=== PATIENT | female | born 1935 | race Caucasian/White ===

== ENCOUNTER 2018-10-08 10:09 | Inpatient (IN) ==
--- NOTE | 2018-10-08 10:49 | Diag Imaging Result Doc PS360 ---
EXAM: CT HEAD W/O CONTRAST INDICATION: stroke like symptoms TECHNIQUE: This exam was performed using automated exposure control, adjustment of mA or kV according to patient size, and/or use of iterative reconstruction technique. COMPARISON: None. FINDINGS: There is moderate diffuse brain atrophy. There is patchy low attenuation in the periventricular and subcortical white matter suggesting moderate to advanced microangiopathy. There is a prominent Virchow-Óscar space at the inferior aspect of the basal ganglion on the left. There is no definite acute infarct given the limited sensitivity of CT versus MRI. There is no discrete intracranial mass, mass effect, or intracranial hemorrhage. There is a small left maxillary sinus mucus retention cyst. Surrounding soft tissues and bony structures are essentially unremarkable, otherwise. IMPRESSION: Atrophy and chronic appearing white matter changes as described. No definite acute pathology by CT. Electronically signed by Rad Hutton 10/08/2018 10:47 AM
[2018-10-08] MEDS ORDERED: NS 1,000 ML IV ONE ×2 (11:24→13:13)
[2018-10-08] MEDS ORDERED: ASPIRIN PR ONE (11:25)
--- NOTE | 2018-10-08 11:53 | EKG Report ---
Test Performed on : 10/08/2018 10:32:12 AM Test Reason : STROKE Blood Pressure : / mmHG Vent. Rate : 095 BPM Atrial Rate : 095 BPM P-R Int : 168 ms QRS Dur : 086 ms QT Int : 372 ms P-R-T Axes : 061 006 057 degrees QTc Int : 467 ms Sinus rhythm. with premature atrial complexes. Cannot rule out Anterior infarct , age undetermined Abnormal ECG When compared with ECG of 15-FEB-2010 11:26, premature ventricular complexes. are no longer present premature atrial complexes. are now present Nonspecific T wave abnormality no longer evident in Inferior leads T wave inversion no longer evident in Anterior leads QT has shortened Unconfirmed Result
[2018-10-08 11:56] LABS: BASO# 0.06 X1000 (0.0-0.2); BASO% 0.4 % (0.0-0.8); HEMATOCRIT 44.8 % (37.0-47.0); LYMPH% 8.1 % (20.5-51.1); MCV 95.5 FL (81-99); MPV 11.8 FL (7.4-10.4); RBC 4.69 XMIL (4.2-5.4)
[2018-10-08] MEDS ORDERED: ZOFRAN IV ONE (11:58)
--- NOTE | 2018-10-08 11:59 | Diag Imaging Result Doc PS360 ---
EXAM: CHEST-PORTABLE HISTORY: STROKE TECHNIQUE: Chest single view COMPARISON: 07/03/2018 FINDINGS: Poor inspiratory effort. Heart is mildly prominent. There are no infiltrates. No pleural effusions identified. There is a granuloma in the left base. IMPRESSION: Mildly prominent heart. Electronically signed by Jair Painter 10/08/2018 11:57 AM
[2018-10-08] MEDS ORDERED: ZOFRAN ONE (12:00)
[2018-10-08 12:04] LABS: AGAP 13; ALB/GLOB RATIO 1.2; ALBUMIN 4.2 g/dL (3.5-5.0); ALKALINE PHOSPHATASE 187 U/L (32-104); BUN 11 mg/dL (8-22); CHLORIDE 103 mmol/L (98-107); COSMO 280; CREATININE 0.7 mg/dL (0.5-0.9); ESTIMATED GFR > 60; GLUCOSE 146 mg/dL (70-104); GOT 16 U/L (10-30); GPT 12 U/L (10-36); POTASSIUM 4.6 mmol/L (3.5-5.1); SODIUM 139 mmol/L (136-145); TCO2 23 mmol/L (25-35); TOTAL BILIRUBIN 0.25 mg/dL (0.20-1.00); TOTAL PROTEIN 7.7 g/dL (6.3-8.3)
[2018-10-08] MEDS ORDERED: ROCEPHIN 1 GM in NS 50 ML IV ONE (12:10)
[2018-10-08 12:20] LABS: URINE SOURCE CATH
[2018-10-08 12:23] LABS: BILIRUBIN URINE NEGATIVE (NEGATIVE); BLOOD URINE NEGATIVE (NEGATIVE); COLOR YELLOW; GLUCOSE URINE NEGATIVE (NEGATIVE); KETONE URINE TRACE mg/dL (NEGATIVE); LEUKOCYTES URINE MODERATE (NEGATIVE); NITRITE URINE NEGATIVE (NEGATIVE); PH URINE 7.5; PROTEIN URINE 30 mg/dL (NEGATIVE); SP GRAVITY URINE 1.017; TURBIDITY URINE CLEAR (CLEAR); UROBILINOGEN URINE NORMAL (NORMAL)
[2018-10-08 12:24] LABS: UR EPITHELIAL CELLS <10 /HPF (<10); URINE BACTERIA NEGATIVE /HPF; URINE RBC <10 /HPF (<10); URINE WBC <10 /HPF (<10)
[2018-10-08 12:37] LABS: EOS# 0.07 X1000 (0.0-0.7); EOS% 0.5 % (0.0-10.0); HEMOGLOBIN 14.8 g/dL (12.0-16.0); IMM GRAN# 0.04 X1000 (0.0-0.04); IMM GRAN% 0.3 % (0.0-0.5); MCH 31.6 PG (27-31); MONO# 0.55 X1000 (0.11-0.59); MONO% 4.1 % (1.7-9.3); NEUT# 11.69 X1000 (1.4-6.5); NEUT% 86.6 % (42.2-75.2); PLT 213 X1000 (130-400); RDW 12.6 % (11.5-14.5); WBC 13.51 X1000 (4.8-10.8)
[2018-10-08 12:42] LABS: UR AMPHETAMINES QUAL NONE DETECTED (NONE DETECT); UR BARBITUATES QUAL NONE DETECTED (NONE DETECT); UR BENZODIAZEPIN QUAL NONE DETECTED (NONE DETECT); UR CANNABINOIDS QUAL NONE DETECTED (NONE DETECT); UR COCAINE QUAL NONE DETECTED (NONE DETECT); UR METHADONE QUAL NONE DETECTED (NONE DETECT); UR OPIATES QUAL NONE DETECTED (NONE DETECT); UR OXYCODONE QUAL NONE DETECTED (NONE DETECT); UR PCP QUAL NONE DETECTED (NONE DETECT)
--- NOTE | 2018-10-08 14:05 | PROVIDER DOCUMENTATION ---
This chart was entered by Celsa Meek Scribe, acting as scribe for Nawaf Raymundo MD. HPI-Neurological Disorder - General Chief Complaint: Altered Mental Status Stated Complaint: stroke like symptoms Time Seen by Provider: 10/08/18 10:23 Source: patient, family, EMS Allergies/Adverse Reactions: Patient Allergies Allergy/AdvReac Type Severity Reaction Status Date / Time Penicillins Allergy RASH Verified 10/08/18 10:45 Home Medications: Home Medication List Medication Instructions Recorded Confirmed Last Taken Type Aspirin 325 mg 06/10/16 06/10/16 History Diltiazem HCl [Diltiazem 24Hr ER] 1 dose 06/10/16 06/10/16 History Lisinopril 10 mg 06/10/16 06/10/16 History Meloxicam 1 dose 06/10/16 06/10/16 History - History of Present Illness-Neuro Nature of Presenting Problem: 83 yowf presents to the ed via ems with her family at bedside. pt was at baseline of a/o x4 last night when family spoke with her 2100. pt called her daughter this morning at 0901 and was having difficulty with using correct words and ask her to come over. daughter once at the home could see no weakness but noticed word salad when speaking with the pt. pt is tearful on exam and still having trouble with speech. no slurring of words are noted but pt can follow some basic commands but then gets confused with other commands. pt c/o left temporal LORENZO Headache Location: reports: temporal (left) Severity: reports: moderate Onset/Duration: reports: this morning (0900) Timing: reports: still present, constant Context: reports: impaired speech. denies: fever, paresthesia, facial droop Character of Altered Mental Status: reports: confused, trouble concentrating Any recent trauma/injury?: reports: none Character of Deficits: reports: impaired speech. denies: altered sensation, impaired swallowing New weakness or altered sensation location:: reports: none Cognitive Baseline: alert, oriented x3 Gait Baseline: walks without assistance Associated Symptoms: reports: headache (left). denies: dizziness, chest pain, nausea, slurred speech (aphasia), vomiting, vision changes, weakness Similar Symptoms Previously?: No Recently seen or treated by another doctor?: No Review of Systems - Adult - REVIEW OF SYSTEMS - ADULT ROS:: ROS per family (daughter) Constitutional: denies: chills, fever Eyes: reports: no symptoms reported Ears, Nose, Mouth & Throat: reports: no symptoms reported Cardiovascular: denies: chest pain, palpitations Respiratory: reports: no symptoms reported Gastrointestinal: denies: abdominal pain, diarrhea, difficulty swallowing, nausea, vomiting Genitourinary: reports: no symptoms reported Musculoskeletal: denies: back pain, neck pain Integumentary: reports: no symptoms reported Neurological: reports: see HPI, headache/migraines. denies: dizziness/vertigo, seizure, slurred speech (aphasia), syncope, tremors Psychiatric: reports: no symptoms reported Endocrine: reports: no symptoms reported Hematologic/Lymphatic: reports: no symptoms reported Allergic/Immunologic: reports: no symptoms reported All Other Systems: Reviewed and Negative Past History - Adult - PAST MEDICAL HISTORY-ADULT Review of Records: reports: Nursing Assessment Review, Medications Reviewed Major Childhood Illnesses: reports: denies history Cardiovascular: reports: HTN Respiratory: reports: COPD Gastrointestinal: reports: denies history Obstetrical/Gynecological: reports: denies history Genitourinary: reports: other (renal cyst) Musculoskeletal: reports: denies history Neurological: reports: denies history Endocrine/Immune: reports: denies history 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, other (MAC) - PRIOR SURGERIES/PROCEDURES Surgical/Procedure History: reports: cholecystectomy - IMMUNIZATION STATUS Childhood Immunizations: See Nurse Assessment Flu Vaccine: See Nurse Assessment - FAMILY HISTORY Family History: reviewed, not pertinent - SOCIAL HISTORY Smoking: denies Substance Use: denies Living Situation: family Physical Exam- Neurological - Physical Exam-Neuro Initial Vital Signs Reviewed: Yes General Appearance: appears well, alert, obese Eye Exam: bilateral eye: normal inspection, PERRL, EOMI HENMT: moist mucous membranes Head Injury: no evidence of injury Neck: non-tender, full range of motion, supple, normal inspection Respiratory: chest non-tender, increased rate (25) Cardiovascular: normal peripheral pulses Abdominal Exam: normal bowel sounds, non tender, soft Lymphatic: no adenopathy Extremity: normal range of motion, non-tender, normal inspection, no pedal edema , no calf tenderness, normal capillary refill head of sales Exam: PERRL, abnormal speech. negative: facial droop, facial paresthesias, facial weakness, gaze palsy Motor/Sensory: no motor deficit, no sensory deficit, no pronator drift Neurologic: aphasia. negative: motor weakness Integumentary: normal color, normal turgor, warm/dry Psych/Mental Status: disoriented x 3, tearful - Glascow Coma Scale Best Eye Response: (4) open spontaneously Best Verbal Response: (4) confused conversation Best Motor Response: (6) obeys commands (some but easily confused) Total Glascow Score: 14 Progress - PLAN OF CARE/RESULTS Progress/Plan/Lab Results: Vital Signs - 8 hr 10/08/18 10:31 10/08/18 10:36 10/08/18 10:40 Temperature Pulse Rate 94 H 93 H Respiratory Rate 22 24 28 H Blood Pressure 186/99 186/99 O2 Sat by Pulse Oximetry 94 L 98 96 10/08/18 10:50 10/08/18 11:00 10/08/18 11:10 Temperature Pulse Rate 90 90 91 H Respiratory Rate 22 21 23 Blood Pressure O2 Sat by Pulse Oximetry 96 96 94 L 10/08/18 11:20 10/08/18 11:30 10/08/18 11:40 Temperature Pulse Rate 90 90 85 Respiratory Rate 26 H 23 18 Blood Pressure O2 Sat by Pulse Oximetry 96 96 98 10/08/18 11:50 10/08/18 12:00 10/08/18 12:08 Temperature 98.4 F Pulse Rate 87 114 H Respiratory Rate 20 26 H Blood Pressure O2 Sat by Pulse Oximetry 97 96 Laboratory Results - last 24 hr 10/08/18 10/08/18 10/08/18 10:35 10:46 11:33 WBC 13.51 H RBC 4.69 Hgb 14.8 Hct 44.8 MCV 95.5 MCH 31.6 H MCHC 33.0 RDW Std Deviation 12.6 Plt Count 213 MPV 11.8 H Immature Gran % (Auto) 0.3 Neut % (Auto) 86.6 H Lymph % (Auto) 8.1 L Daniels % (Auto) 4.1 Eos % (Auto) 0.5 Baso % (Auto) 0.4 Immature Gran # (Auto) 0.04 Neut # (Auto) 11.69 H Lymph # (Auto) 1.10 L Daniels # (Auto) 0.55 Eos # (Auto) 0.07 Baso # (Auto) 0.06 Sodium 139 Potassium 4.6 Chloride 103 Carbon Dioxide 23 L Anion Gap 13 BUN 11 Creatinine 0.7 Estimated GFR/1.73 m2 > 60 BUN/Creatinine Ratio 16 Glucose 146 H POC Glucose 145 H Calculated Osmolality 280 Calcium 10.0 Magnesium 2.0 Total Bilirubin 0.25 AST 16 ALT 12 Alkaline Phosphatase 187 H Total Protein 7.7 Albumin 4.2 Globulin 3.5 Albumin/Globulin Ratio 1.2 Plasma Lactate Urine Source Urine Color Urine Turbidity Urine pH Ur Specific Hixson Urine Protein Ur Glucose (Stick) Ur Ketones (Stick) Urine Blood Urine Nitrite Urine Bilirubin Urobilinogen Dipstick Urine Leukocytes Urine WBC (Auto) Urine RBC (Auto) U Epithel Cells (Auto) Urine Bacteria (Auto) Urine Opiates Screen Ur Oxycodone Screen Ur Methadone, Qual Ur Barbiturates Screen Ur Phencyclidine Scrn Ur Amphetamines Screen U Benzodiazepines Scrn Urine Cocaine Screen U Cannabinoids Screen 10/08/18 10/08/18 10/08/18 12:05 12:05 12:10 WBC RBC Hgb Hct MCV MCH MCHC RDW Std Deviation Plt Count MPV Immature Gran % (Auto) Neut % (Auto) Lymph % (Auto) Daniels % (Auto) Eos % (Auto) Baso % (Auto) Immature Gran # (Auto) Neut # (Auto) Lymph # (Auto) Daniels # (Auto) Eos # (Auto) Baso # (Auto) Sodium Potassium Chloride Carbon Dioxide Anion Gap BUN Creatinine Estimated GFR/1.73 m2 BUN/Creatinine Ratio Glucose POC Glucose Calculated Osmolality Calcium Magnesium Total Bilirubin AST ALT Alkaline Phosphatase Total Protein Albumin Globulin Albumin/Globulin Ratio Plasma Lactate 2.1 Urine Source CATH Urine Color YELLOW Urine Turbidity CLEAR Urine pH 7.5 Ur Specific Hixson 1.017 Urine Protein 30 A Ur Glucose (Stick) NEGATIVE Ur Ketones (Stick) TRACE A Urine Blood NEGATIVE Urine Nitrite NEGATIVE Urine Bilirubin NEGATIVE Urobilinogen Dipstick NORMAL Urine Leukocytes MODERATE A Urine WBC (Auto) <10 Urine RBC (Auto) <10 U Epithel Cells (Auto) <10 Urine Bacteria (Auto) NEGATIVE Urine Opiates Screen NONE DETECTED Ur Oxycodone Screen NONE DETECTED Ur Methadone, Qual NONE DETECTED Ur Barbiturates Screen NONE DETECTED Ur Phencyclidine Scrn NONE DETECTED Ur Amphetamines Screen NONE DETECTED U Benzodiazepines Scrn NONE DETECTED Urine Cocaine Screen NONE DETECTED U Cannabinoids Screen NONE DETECTED Orders Category Date Time Status Cardiac Monitoring DIRECTED Care 10/08/18 11:21 Active Saline Loc NOW Care 10/08/18 11:22 Active CHEST-PORTABLE [RAD] Stat Exams 10/08/18 11:[address] HEAD W/O CONTRAST [CT] Stat Exams 10/08/18 10:04 Completed MRA BRAIN W/O CONTRAST [MRI] Stat Exams 10/08/18 13:42 Ordered MRI BRAIN W/WO CONTRAST [MRI] Stat Exams 10/08/18 13:42 Ordered BLOOD CULTURE [BLDCUL] Stat Lab 10/08/18 12:22 Results CBC WITH ELECTRONIC DIFF [HEME] Stat Lab 10/08/18 10:46 Completed COMPREHENSIVE METABOLIC PANEL [CHEM] Stat Lab 10/08/18 11:33 Completed LACTATE, PLASMA [CHEM] Stat Lab 10/08/18 12:10 Completed MAGNESIUM [CHEM] Stat Lab 10/08/18 11:33 Completed URINALYSIS W/POSS RFLX CULT [URINALYSIS] Stat Lab 10/08/18 12:05 Completed URINE CULTURE [RM] Routine Lab 10/08/18 12:42 Received URINE DRUG SCREEN Stat Lab 10/08/18 12:05 Completed 0.9% Sodium Chloride Inj [Ns] 1,000 ml Med 10/08/18 13:13 Active IV 125 mls/hr 0.9% Sodium Chloride Inj [Ns] 1,000 ml Med 10/08/18 11:24 Discontinued IV 999 mls/hr Aspirin Med 10/08/18 11:25 Discontinued 300 mg MO NOW ONE CefTRIAXONE [Rocephin] 1 gm Med 10/08/18 12:10 Discontinued 0.9% Sodium Chloride Inj [Ns] 50 ml IV NOW Ondansetron [Zofran] Med 10/08/18 12:00 Discontinued 4 mg .ROUTE .STK-MED ONE Ondansetron [Zofran] Med 10/08/18 11:58 Discontinued 4 mg IV NOW ONE EKG [EKG] Stat Ther 10/08/18 11:23 Draft NO TPA given due to outside time window per dr raymundo Result Diagrams: 10/08/18 10:46 10/08/18 11:33 - REASSESSMENT Reassessment #1 Time Reassessed: 11:18 (pt still has expressive aphasia on exam but shows no signs of weakness ) Status: unchanged Reassessment #2 Time Reassessed: 12:21 (family with pt and pt is resting in bed) Status: unchanged Reassessment #3 Time Reassessed: 13:42 (family is at bedside and pt is having trouble with speaking still) Status: unchanged - EKG 1 Time of EKG reading by physician:: 10:32 (032) EKG Read and Signed by:: Nawaf Raymundo EKG Interpretation (*Must complete 3 of following elements*): Abnormal Rate: 95 Rhythm: sinus rhythm with pac Vista: normal QRS: normal MO Interval: normal ST Wave: normal Comments: cannot rule out anterior infarct, age undetermned - XRAY 1 XRAY: Bilateral XRAY Study: Chest Impression: See EMR Report (EXAM: CHEST-PORTABLE HISTORY: STROKE TECHNIQUE: Chest single view COMPARISON: 07/03/2018 FINDINGS: Poor inspiratory effort. Heart is mildly prominent. There are no infiltrates. No pleural effusions identified. There is a granuloma in the left base. IMPRESSION: Mildly prominent heart. Electronically signed by Jair Painter 10/08/2018 11:57 AM 10/08/18 1157 Interpreting Physician: Jair Painter MD Dictated Date/ Time: 10/08/18 1156 cc: Nawaf Raymundo MD; Cally Raymundo MD) - CT/MRI 1 CT Study: Head Impression: See EMR Report (EXAM: CT HEAD W/O CONTRAST INDICATION: stroke like symptoms TECHNIQUE: This exam was performed using automated exposure control, adjustment of mA or kV according to patient size, and/or use of iterative reconstruction technique. COMPARISON: None. FINDINGS: There is moderate diffuse brain atrophy. There is patchy low attenuation in the periventricular and subcortical white matter suggesting moderate to advanced microangiopathy. There is a prominent Virchow-Óscar space at the inferior aspect of the basal ganglion on the left. There is no definite acute infarct given the limited se nsitivity of CT versus MRI. There is no discrete intracranial mass, mass effect, or intracranial hemorrhage. There is a small left maxillary sinus mucus retention cyst. Surrounding soft tissues and bony structures are essentially unremarkable, otherwise. IMPRESSION: Atrophy and chronic appearing white matter changes as described. No definite acute pathology by CT. Electronically signed by Rad Hutton 10/08/2018 10:47 AM 10/08/18 1047 Interpreting Physician: Rad Hutton MD Dictated Date/Time: 10/08/18 1043 cc: Nawaf Raymundo MD; Cally Raymundo MD) - CONSULTS/PCP/HOSPITALIST Notification #1 *Consult/PCP/Hospitalist*: hospitalist dr flor Time Discussed: 13:42 Consult Disposition: Admit Departure - Departure Date of Disposition Decision: 10/08/18 Time of Disposition Decision: 14:02 DIAGNOSIS: Aphasia, Broca's, Ischemic cerebrovascular accident (CVA) Disposition: ADMITTED INPATIENT 09 Certified Medical Emergency: Emergent Condition: Stable Referrals and Follow-Ups: Cally Raymundo MD [Primary Care Provider] - - Critical Care Note This patient required my direct & personal management of CC.: Yes Total Time (mins): 35 Critical Care Statement: This patient required my direct personal management to treat or rule out processes, the absence of which, could potentiallly result in sudden, clinically significant life or limb threatening deterioration. Attestation - Physician/ GRISELDA Attestation Patient care was provided by Advanced Practice Provider:: No The physician spent face to face time with patient:: Yes Advanced Practice Provider documentation review:: Supervising physician onsite and consulted in the evaluation and care of this patient. The physician did have a face to face encounter with the patient. - NIH Stroke Scale NIH Type: Initial Evaluation Level of Consciousness: 0-Alert LOC Questions (ask month and age): 0-Answers Both Correctly LOC Commands (ask to open & close eyes;make a fist, let go): 1-Obeys One Correctly Best Gaze (horizontal eye movement): 0-Normal Visual (use finger movement, counting or visual threat): 0-No Visual Loss Facial Palsy (show teeth or raise eyebrows & close eyes tght: 0-Symmetrical Movement Motor Function-left arm: 0-Normal Motor Function-right arm: 0-Normal Motor Function-left le-Normal Motor Function-right le-Normal Limb Ataxia([id number]-[id number], or heel to toro): 0-No Ataxia Sensory(pin prick to face,arms,trunk,legs-compare side/side): 0-No Ataxia Best Language(name item/read sentence.Ex-Down to Earth): 2-Severe Aphasia Dysarthria(Pt read words or say words Ex.Mama,Tip-Top,Thanks: 0-Normal Articulation Extinction and Inattention: 1-Partial Neglect NIH Total Score: 4 This chart was documented by the indicated scribe, (Celsa Meek, Abimael) and accurately reflects the services I performed and decisions made by me, Nawaf Raymundo MD, as attested by the provider's signature.
[2018-10-08] MEDS ORDERED: TYLENOL PO PRN (14:57)
[2018-10-08] MEDS ORDERED: ZOFRAN IV PRN (14:57)
[2018-10-08] MEDS ORDERED: SYMBICORT 160/4.5 MICROGM INHALER INH PRN (15:49)
--- NOTE | 2018-10-08 16:47 | HISTORY AND PHYSICAL ---
HISTORY OF PRESENT ILLNESS: Ms. Bedoya is 83-year-old. I think she sees Dr. Cally Colin, primary care and apparently this morning she called her daughter and said she needed to come over and help her and she came over and she was having trouble putting words together. She did not appear in any respiratory distress. She denied any chest pain or fever. No recent head trauma. Past medical history fairly unremarkable except for hypertension. She also has been diagnosed with MAC and I am not sure if she is followed by insurance appraiser. She seems to be speaking a little better and structuring her sentences better now and so there is improvement. CT of the head done without contrast showed atrophy, chronic appearing white matter changes. No definite acute pathology, though. PAST MEDICAL HISTORY: Hypertension MEDICATIONS: She has been taking aspirin every day. ALLERGIES: No known drug allergies. SOCIAL HISTORY: Lives in [place]. I think Dr. Cally Colin is her primary care physician. REVIEW OF SYSTEMS: The family is at the bedside. No weight gain or loss. No fever or chills. No change in hearing or visual acuity. No neck pain. No recent head trauma.Respiratory: No increased work of breathing or dyspnea. No cough or pleuritic discomfort. Cardiovascular: No chest pain or tachy palpitations. GI/: No gross hematochezia, no gross hematuria. No dysuria. Neurologic: No focal complaints or changes. Endocrinologic/Hematologic: No significant history. PHYSICAL EXAMINATION: VITAL SIGNS: In the emergency room she is awake and alert. She answers questions and seems to formers sentences pretty good. She could no if's ands or buts but she did not try really there, but the family said she is putting phrases together and she is speaking much more fluently right now, she is afebrile 98.4 degrees, pulse 96, respirations 20, blood pressure 154/60. Weight is 190 pounds HEENT: Pupils are equal round. Oral and nasal mucosa unremarkable. Conjunctivae pink. Sclerae clear. LUNGS: Clear in all lung steinberg. CARDIOVASCULAR: Regular rhythm and rate without murmur or S3. ABDOMEN: Soft. SKIN: Warm and dry. Weight is 190 pounds. NEUROLOGIC: Cranial nerves 2-12 appear intact. Motor strength is symmetrical and appears to be 4+ out of 5 and no sensory deficit detected. No facial drooping. Tongue is midline skin is warm and dry. No rash. LAB: White count 31,510, hematocrit is 44, platelet count 213,000. Sodium 139, potassium 4.6, chloride 103, BUN 11, creatinine 0.7, blood sugar 146, calcium is 10. AST 16, ALT 12, alkaline phosphatase 187, albumin is 4.2. Urine drug screen was negative for opiates, oxycodone, methadone, barbiturates, phencyclidine, amphetamines, benzodiazepines, cocaine, and cannabinoids. Urinalysis was unremarkable. No significant sediment. Chest x-ray was mildly prominent heart, but otherwise no infiltrate and no acute pathology. ASSESSMENT AND PLAN: 1. I suspect she has had a left parietal event and it looks like it may be transient affecting the speech center or the area of Broca. She is already on aspirin. We will add Plavix to her regimen. I am going to check a cholesterol profile in the morning. We will check her T4, TSH, B12, and folate. We will ask Neurology to evaluate as well. We will also get an echocardiogram and carotid Doppler to make sure there is no embolic source. We will put her on a monitor, make sure she is not having underlying paroxysmal atrial fibrillation and we will give her normal saline and run it at 75 mL an hour. Note that she has a history of hypertension. Her blood pressure looks good at this point. We are going to allow blood pressures 150s 160 systolic at this point, tolerance for a little bit of mild hypertension in the face of an acute transient ischemic attack. 2. Hypertension watch blood pressure. 3. She has a history of MAC. REVIEW OF MEDICATIONS: Her medications she is on rifampin 2 tablets daily will continue those. She is on lisinopril 10 mg a day. We will continue that as well, ethambutol 5 tablets. We will see how she takes those but continue those medicines. She is already on budesonide formoterol inhaler. We will continue that. She is on azithromycin, so I believe she is taking azithromycin and ethambutol and rifampin all for MAC. She takes aspirin 325 mg a day. We will change that to an 81 mg tablet a day and will start her on Plavix 75 mg a day. Put her on a heart healthy diet and get a swallow evaluation. We will start speech therapy and physical therapy in the morning. cc: Blaine Reyes MD
[2018-10-08] MEDS: PLAVIX PO SCH (17:26)
[2018-10-08] MEDS: NS 1,000 ML IV SCH (17:27)
[2018-10-08] MEDS: ZANTAC PO SCH (22:40)
[2018-10-08] MEDS: LIPITOR PO SCH (22:40)
[2018-10-09] MEDS: NS 1,000 ML IV SCH ×3 (04:56→20:16)
[2018-10-09 06:17] LABS: INR 1.03; PROTIME 14.3 Seconds (11.0-16.0)
[2018-10-09 06:18] LABS: PTT 29.2 Seconds (22.3-41.8)
[2018-10-09 06:34] LABS: AGAP 8; ALB/GLOB RATIO 1.4; ALBUMIN 3.7 g/dL (3.5-5.0); ALKALINE PHOSPHATASE 145 U/L (32-104); BUN 8 mg/dL (8-22); CALCIUM 9.3 mg/dL (8.8-10.2); CHLORIDE 107 mmol/L (98-107); COSMO 278; CREATININE 0.6 mg/dL (0.5-0.9); ESTIMATED GFR > 60; GLUCOSE 97 mg/dL (70-104); GOT 14 U/L (10-30); GPT 13 U/L (10-36); POTASSIUM 4.1 mmol/L (3.5-5.1); SODIUM 140 mmol/L (136-145); TCO2 25 mmol/L (25-35); TOTAL BILIRUBIN 0.28 mg/dL (0.20-1.00); TOTAL PROTEIN 6.4 g/dL (6.3-8.3)
[2018-10-09 07:21] LABS: FREE T4 0.92 ng/dL (0.93-1.70)
[2018-10-09 07:48] LABS: BASO# 0.05 X1000 (0.0-0.2); BASO% 0.6 % (0.0-0.8); EOS# 0.12 X1000 (0.0-0.7); EOS% 1.5 % (0.0-10.0); HEMATOCRIT 42.9 % (37.0-47.0); HEMOGLOBIN 13.8 g/dL (12.0-16.0); IMM GRAN# 0.02 X1000 (0.0-0.04); IMM GRAN% 0.3 % (0.0-0.5); LYMPH# 1.77 X1000 (1.2-3.4); LYMPH% 22.6 % (20.5-51.1); MCH 31.4 PG (27-31); MCHC 32.2 g/dL (33-37); MCV 97.5 FL (81-99); MONO# 0.57 X1000 (0.11-0.59); MONO% 7.3 % (1.7-9.3); MPV 11.3 FL (7.4-10.4); NEUT# 5.31 X1000 (1.4-6.5); NEUT% 67.7 % (42.2-75.2); PLT 192 X1000 (130-400); RDW 12.6 % (11.5-14.5); WBC 7.84 X1000 (4.8-10.8)
[2018-10-09] MEDS ORDERED: BROVANA NEB INH SCH ×2 (09:00→21:00)
[2018-10-09] MEDS: ZANTAC PO SCH ×2 (09:52→20:16)
[2018-10-09] MEDS: PREDNISONE PO SCH (09:52)
[2018-10-09] MEDS: ASPIRIN PO SCH (09:53)
[2018-10-09] MEDS: ZYRTEC PO SCH (09:55)
[2018-10-09] MEDS: ULTRAM PO SCH (09:57)
[2018-10-09] MEDS: PLAVIX PO SCH (09:59)
--- NOTE | 2018-10-09 10:44 | Diag Imaging Result Doc PS360 ---
EXAM: MRI BRAIN W/WO CONTRAST INDICATION: cva COMPARISON: No prior MRI brain is available for comparison. FINDINGS: There is no evidence of acute infarct. There is fairly advanced diffuse brain atrophy. There is patchy T2/FLAIR hyperintensity in the periventricular and subcortical white matter suggesting moderate microangiopathy. There is no discrete intracranial mass, mass effect, or intracranial hemorrhage. There is no evidence of abnormal intracranial enhancement. The surrounding soft tissues and bony structures are essentially unremarkable. IMPRESSION: Diffuse brain atrophy and suggestion of moderate white matter microangiopathy. No evidence of acute intracranial pathology. Electronically signed by Rad Hutton 10/09/2018 10:42 AM
--- NOTE | 2018-10-09 10:58 | Diag Imaging Result Doc PS360 ---
EXAM: MRA BRAIN W/O CONTRAST INDICATION: cva TECHNIQUE: 3-D [id number] images and 3-D MIPS were obtained. COMPARISON: None. FINDINGS: There is no evidence of flow-limiting stenosis, vascular malformation, or cerebral aneurysm involving the arteries comprising the [place] including the anterior, middle, and posterior cerebral arteries. The distal ICAs are patent and are unremarkable, otherwise. The basilar artery is unremarkable. The visualized distal vertebral arteries are unremarkable. IMPRESSION: No evidence of flow-limiting stenosis. Electronically signed by Rad Hutton 10/09/2018 10:56 AM
--- NOTE | 2018-10-09 11:35 | ECHO REPORT ---
ORDER DATE: 10/08/2018 INTERPRETING PHYSICIAN: Dr. Mendoza REQUESTING PHYSICIAN: Dr. Colin. CLINICAL INDICATIONS: 83-year-old female with a stroke. M-MODE MEASUREMENTS: Left ventricle end diastole: 4.4 cm. Left ventricle end systole: 3.3 cm. Posterior wall: 1.3 cm. Interventricular septum: 1.3 cm. Left atrium: 3.6 cm. Aortic root: 3.0 cm. SUMMARY OF 2-DIMENSIONAL IMAGIN. The study is technically difficult. The left ventricular systolic function appears to be normal. Ejection fraction estimated at 70% to 75%. No wall motion abnormality is noted. 2. The aortic valve appears to be grossly normal. Color flow mapping unremarkable. 3. The mitral valve appears to be grossly normal. Color flow mapping shows very mild degree of regurgitation. 4. The pulse wave Doppler of mitral inflow shows mild reversal of the E and A ratio, ratio is 0.7. 5. Tissue Doppler of septal and lateral mitral annulus averages 9 cm. 6. There is no diastolic dysfunction. 7. The pulmonic valve was normal. Color flow mapping unremarkable. 8. The right ventricle and the atria appear to be grossly normal. 9. The tricuspid valve shows minimal regurgitation. Pulmonary pressure estimated at 40-45 mmHg. 10.No pericardial effusion, no mass, and no thrombus. Clinical correlation is recommended. cc: MD Luz Smith CRNP
--- NOTE | 2018-10-09 14:52 | CONSULTATION ---
DATE OF CONSULTATION: 10/09/2018 Ms. Bedoya is 83 years old and there is question of stroke. History from the patient and her attentive daughter at the bedside is that the patient had trouble communicating with speech yesterday morning. The patient recalls getting up, preparing to fix breakfast, and realizing she had made a mess with breakfast food. She does not recall details of events that occurred through the morning. She attempted to call daughter by phone but hung up. Daughter phoned her back and noticed the patient having trouble speaking. Daughter phoned family to come check on the patient. Daughter provided today a cell phone video made yesterday showing the patient struggling to find words with typical dysphasia apparent. She was brought to the hospital, evaluated and observed. She steadily improved through the day yesterday. She seems completely recovered to baseline today, according to patient and to daughter. She has never had an episode like this before. There is no history of previous stroke, seizure, serious head injury, other neurologic event. She had significant headache during the day yesterday and that has resolved. Workup includes initial noncontrast CT, later brain MRI done with and without contrast, and brain MRA. These are all reported unremarkable. Echocardiogram showed no source of embolus. I believe that she may have had carotid ultrasound, but I do not have that report. She has been afebrile. Systolic blood pressures were 180s initially, down to 150s in recent hours. Heart rate has ranged 50s to 80s. Lab showed initial WBC 13,000, later 7800. PT and PTT are normal. Blood sugars have been 120s- 140s. Free T4 is 0.92. I do not find TSH in this computer system. Home medicine list does not include thyroid replacement. She has daily aspirin, diltiazem, lisinopril. 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 She and daughter report she often does not take her blood pressure medicines on the days that she takes the medicines for MAC. On exam now, Ms. Bedoya is awake, alert, attentive. She seems appropriate. She is oriented. Speech is not dysarthric now. Language function is intact on bedside testing. Remote memory is good. Head and neck are unremarkable. Visual steinberg are full tested grossly by confrontational finger counting. Extraocular movements are full. Facial motility is diminished bilaterally, but symmetric. Gag is intact. Tongue is midline. She can hear. Shoulder shrug is equal. Strength is normal in the arms. She has some arthritic deformities in the legs, but good power symmetrically in the legs. Limb tone is symmetric. She did well on [id number] testing bilaterally. She reports good pinprick appreciation over the limbs. Her gait is very antalgic, assisted with quad cane. IMPRESSION: Transient dysphasia associated with headache, elevated blood pressure, usual risk factors for cerebrovascular ischemic problems. Negative imaging is reassuring. This seems most likely transient ischemic event, much longer duration than usual transient ischemic attack. Migraine seems less likely. Seizure is not excluded. Her clinical course is very reassuring. I do not think we have to do anything urgently now. I will check on the carotid ultrasound report when available. I would continue treating blood pressure to maintain systolics near current levels, continue atorvastatin, continue aspirin and clopidogrel, treat blood sugar aggressively if it becomes more elevated. Depending on her clinical course, we might consider EEG, repeat imaging, management for migraine or for seizure. Thanks for asking neurology to see Ms. Bedoya. cc: MD CHARO Baldwin III
--- NOTE | 2018-10-09 15:42 | PROGRESS NOTE ---
DATE: 10/09/2018 SUBJECTIVE: She was admitted yesterday, she had trouble with her speech but she had a left-sided cerebral event. She is talking better today and feels a little bit better. OBJECTIVE: She remains afebrile, temperature 97.5 degrees, pulse 62, respirations 18, and blood pressure 111/78. Pupils are equal and round. Lungs are clear in all lung steinberg. Cardiovascular regular rate and rhythm without S3. Abdomen is soft. Skin is warm and dry. LABORATORY: Reviewed her lab, white count 7840, hematocrit is 42, and platelet count is 192,000. Electrolytes show sodium 140, potassium 4.1, chloride 107, BUN 8 creatinine 0.6. Blood sugars look well controlled. Liver enzymes are normal. Cholesterol profile show LDL was 126. ASSESSMENT AND PLAN: Transient dysphagia associated with headache and elevated blood pressure. Usual risk factors for cerebrovascular. Appreciate Dr. Au evaluating this likely transient ischemic event. Migraine seems less likely so we will review her carotid ultrasound. Continue aspirin and Plavix. We will try physical and speech therapy. Seems to be swallowing okay and swallowing food okay. Blood pressures appear to be under good control. cc: Blaine Reyes MD
[2018-10-09] MEDS: BROVANA NEB INH SCH (20:09)
[2018-10-09] MEDS: LIPITOR PO SCH (20:17)
[2018-10-09] MEDS: SYMBICORT 160/4.5 MICROGM INHALER INH SCH (22:00)
[2018-10-10] MEDS: NS 1,000 ML IV SCH (02:55)
[2018-10-10] MEDS ORDERED: BROVANA NEB ONE (07:25)
[2018-10-10] MEDS: SYMBICORT 160/4.5 MICROGM INHALER INH SCH (08:26)
[2018-10-10] MEDS: BROVANA NEB INH SCH ×2 (08:30→11:31)
[2018-10-10] MEDS ORDERED: MYAMBUTOL PO SCH (09:00)
[2018-10-10] MEDS ORDERED: RIFAMPIN PO SCH (09:00)
[2018-10-10] MEDS ORDERED: CARDIZEM CD PO SCH (09:00)
[2018-10-10] MEDS ORDERED: ZITHROMAX PO SCH (09:00)
[2018-10-10] MEDS ORDERED: PRINIVIL PO SCH (09:00)
--- NOTE | 2018-10-10 09:00 | PROGRESS NOTE ---
DATE: 10/10/2018 SUBJECTIVE: Ms. Bedoya and daughter report no setbacks. Speech has continued to be baseline. Her gait difficulty is at baseline. She does not have headache now. Blood pressures have ranged 130s to 170s in the last 12 hours. I reviewed the brain MRI, MRA, head CT and echocardiogram reports with patient and daughter. I believe that carotid ultrasound was done earlier with report pending. On brief bedside language testing this morning, she appears intact. She is awake and alert, attentive and appropriate. With her stable course and apparent complete recovery, no urgent suggestion from Neurology standpoint. I would treat her blood pressure, continue other management, await carotid report. I will be glad to see her as an outpatient later, if needed. Thanks for asking Neurology to see Ms. Bedoya. cc: MD CHARO Baldwin III
[2018-10-10] MEDS: ZANTAC PO SCH (10:47)
[2018-10-10] MEDS: ZYRTEC PO SCH (10:47)
[2018-10-10] MEDS: PLAVIX PO SCH (10:47)
[2018-10-10] MEDS: ASPIRIN PO SCH (10:48)
[2018-10-10] MEDS: ULTRAM PO SCH (10:48)
[2018-10-10] MEDS: PREDNISONE PO SCH (10:48)
[2018-10-10 12:01] VITALS: BP 190/88
--- NOTE | 2018-10-10 13:51 | Carotid Study ---
DATE: 10/08/2018 PROCEDURE: Carotid duplex imaging. REFERRING PHYSICIAN: Cristi. INTERPRETING PHYSICIAN: Ba Stubbs MD. TECH: Floris. INDICATIONS: Stroke. OBSERVED DATA RIGHT LEFT Brachial Blood Pressure Carotid Pulse Bruits: Carotid/Sub DIAGRAM OF ULTRASOUND IMAGING R L RIGHT INT EXT INT EXT LEFT Bc (cm/s) Bc (cm/s) Subclavian 96/4 Subclavian 151/4 CCA Proximal 96/4 CCA Proximal 124/12 CCA Distal 59/10 CCA Distal 76/10 Bulb 60/10 Bulb 56/8 ICA Proximal 46/7 ICA Proximal 61/13 ICA Mid 77/16 ICA Mid 93/19 ICA Distal 87/21 ICA Distal 97/25 ECA 62/0 ECA 120/0 Vertebral 54/0 Vertebral 43/9 ICA/CCA Ratio 0.9 ICA/CCA Ratio 0.8 % Stenosis 0-39% % Stenosis 0-39% FINDINGS: There is minimal atherosclerotic disease seen in the carotid systems bilaterally. PHYSICIAN INTERPRETATION: Unremarkable carotid imaging. cc: MD Luz Live CRNP
--- NOTE | 2018-10-10 15:36 | DISCHARGE SUMMARY ---
ADMISSION DATE: 10/08/2018 DISCHARGE DATE: 10/10/2018 This is an 83-year-old followed by Cally Colin presented to Primary Care in the emergency room. Her daughter had been called and she came over noted she is having trouble putting words together. There is no other focal neurologic complaints such as drooping of the face or mouth. No chest pain, no palpitations and her speech seemed to improve by the time they got to the emergency room. PAST MEDICAL HISTORY: Hypertension. She is already on aspirin. No significant surgical history. She showed steady improvement. Neurology did see here. Suspect transient ischemic event. No sign of seizure activity. Echocardiogram by Dr. Mendoza. There is no mural thrombus. Ejection fraction 70-75%, no wall motion abnormality, no valvular dysfunction. Carotid Dopplers were unremarkable. Minimal atherosclerotic disease. She had MRA and MRI of the brain, diffuse brain atrophy suggesting moderate white matter microangiopathy but no other pathology and MRA no evidence of flow-limiting stenosis. She clinically better. I added Plavix to her regimen. Blood pressure appeared well controlled. Review of her lab unremarkable. We did do a lipid profile and LDL was 126 . DISCHARGE MEDICATIONS: She will be on aspirin 81 mg a day, Lipitor 10 mg at bedtime, Plavix 75 mg a day. Note I should also mention she is being treated for Mycobacterium avium and she is on her regimen of rifampin 600 mg Saturday, Saturday and Saturday, she is on Brovana nebulizer use daily, ethambutol 2000 mg Saturday, Wednesdays and Fridays. Will let her go home. Follow up with the primary care physician. cc: Blaine Reyes MD
== END 2018-10-10 16:42 | disposition home health service (06) | DRG 69 ==
LOC: SUPCPDRO → ED 10:09 → EDIPHOLD 15:32 → 3N 10-09 16:35
PROVIDERS: ATTEND Emergency Medicine
CPT/HCPCS: 51701; 70450; 70544; 70553; 71010; 71045; 80053; 80061; 80101; 80301; 80307; 80324; 80345; 80346; 80353; 80358; 80361; 80365; 81001; 82607; 82746; 82948; 83605; 83721; 83735; 83992; 84439; 85025; 85610; 85730; 87040; 87088; 92507; 93005; 93306; 93880; 94640; 94761; 96361; 96365; 96375; 96376; 97162; 97530; 99285; A9270; A9579; G0431; G0434; G0479; G0480; J0696; J2405; J7030; J7506; J7512; P9612; XXXXX